=== PATIENT | female | born 1955 | race Caucasian/White ===

== ENCOUNTER 2025-04-18 08:36 | Day surgery (SDC) | payer OTHER ==
[2025-04-18] VITALS (13 sets, daily range): BP systolic 77–146; BP diastolic 54–88
[~2025-04-18] VITALS: Ht 160 cm; Wt 67.7 kg
[~2025-04-18 08:36] MED LIST: ALLERCLEAR10 MG PO; ASCO500 PO; ASPI81CH PO; ATOR40TA PO; CARV3.125; FAMO20 PO; FISH1000 PO; HYDACE5 PO; LOSA25 PO; Lactated Ringer's 1,000 ML IV SCH; NAPR500 PO; OMEP20ER PO; Percocet 5-3251 EACH PO; SUCR1 PO
--- NOTE | 2025-04-18 09:12 | NUR ---
Ambulatory in Day Surgery. History, Chart, Medications and Allergies reviewed before start of procedure. Lungs clear T/O to Auscultation. Patient confirms NPO status and agrees with scheduled surgery. Pre-Op teaching done. Pt verbalizes understanding. Patient States Post-Procedure ride home has been arranged.
--- NOTE | 2025-04-18 09:42 | NUR ---
04/18/25 0942 Jennifer Wang CONFIRMED AND REVIEWED H&P, MEDCICATIONS, ALLERGIES, MEDICAL HISTORY, RESPIRATORY HISTORY, VITAL SIGNS, 3-LEAD EKG, CONSENTS, AND PHYSICIAN ORDERS. PATIENT CONFIRMS NPO STATUS AND AGREES WITH SCHEDULED PROCEDURE. MONITOR INTACT WITH CONTINUOUS PULSE OXIMETRY, CAPNOGRAPHY, 3-LEAD EKG, INTERMITTENT BP. SUPPLEMENTAL O2 TO BE TITRATED THROUGHOUT PROCEDURE TO MAINTAIN O2 SATURATION ABOVE 90%. PATIENT DETERMINED TO BE ASA APPROPRIATE FOR PROPOFOL SEDATION PRIOR TO START OF PROCEDURE BY DR. BENITES. HURRICAINE SPRAY TO OROPHARYX. Bite Block Placed.
[2025-04-18] MEDS ORDERED: propofoL 20 ML IV ONE (09:43)
[2025-04-18] MEDS ORDERED: Benzocaine Oral Spray 0.5ML UD ONE (09:45)
--- NOTE | 2025-04-18 10:49 | NUR ---
1015: REPORT RECEIVED FROM KHOI SORENSEN. PT HYPOTENSIVE, ASYMPTOMATIC. BP CUFF READJUSTED W/BETTER RESULTS. PT ON RA. PT A&OX4. PT ABLE TO REPOSITION SELF IN BED. PT REQUESTING PO FLUIDS AND TOLERATING THEM WELL. PT DENIES PAIN, NAUSEA OR OTHER DISCOMFORTS.
== END 2025-04-18 10:55 | disposition home or self-care (01) ==
LOC: ORSCMMR 08:36 → ORD 09:30 → ORSCMMR 10:55
PROVIDERS: Internal Medicine Gastroenterology
PROC: 0DB58ZX Excision of Esophagus, Via Natural or Artificial Opening Endoscopic, Diagnostic (ICD-10-PCS; principal; 2025-04-18 09:30)
PROC: 0DB68ZX Excision of Stomach, Via Natural or Artificial Opening Endoscopic, Diagnostic (ICD-10-PCS; principal; 2025-04-18 09:30)
PROC: 0DB48ZX Excision of Esophagogastric Junction, Via Natural or Artificial Opening Endoscopic, Diagnostic (ICD-10-PCS; principal; 2025-04-18 09:30)
PROC: 0DB98ZX Excision of Duodenum, Via Natural or Artificial Opening Endoscopic, Diagnostic (ICD-10-PCS; principal; 2025-04-18 09:30)
DX: K21.00 Gastro-esophageal reflux disease with esophagitis, without bleeding (principal); K22.70 Barrett's esophagus without dysplasia; K29.70 Gastritis, unspecified, without bleeding; K57.30 Diverticulosis of large intestine without perforation or abscess without bleeding; K44.9 Diaphragmatic hernia without obstruction or gangrene; I10 Essential (primary) hypertension; J44.9 Chronic obstructive pulmonary disease, unspecified; I73.9 Peripheral vascular disease, unspecified; E78.00 Pure hypercholesterolemia, unspecified; F17.210 Nicotine dependence, cigarettes, uncomplicated; Z79.82 Long term (current) use of aspirin; Z79.899 Other long term (current) drug therapy
CPT/HCPCS: 88305; 88312; 88342; A9270; J2704; J7120